=== PATIENT | female | born 1975 | race Caucasian/White ===

== ENCOUNTER → 2018-01-16 20:00 | Observation (INO) ==
--- NOTE | 2018-01-16 13:32 | Discharge Summary ---
Date of Encounter: 01/16/18 Time of Encounter: 20:11 - Discharge Diagnosis (1) 34 weeks gestation of Priority: Secondary Status: Acute (2) Gestational diabetes mellitus (GDM) affecting first Priority: Primary Status: Acute Comments: RNST (3) AMA (advanced maternal age) multigravida 35+ Priority: Secondary Status: Acute Qualifiers: Trimester: third trimester Qualified Code(s): O09.523 - Supervision of elderly multigravida, third trimester - Discharge Medications Home Medications: Vit/Iron Fumarate/FA [ Tablet] 1 tab PO DAILY 05/01/17 [History ] Aspirin 81 mg PO DAILY 01/16/18 [History] Omeprazole [PriLOSEC] 20 mg PO DAILY 01/16/18 [History] metFORMIN 1,000 mg PO BID 01/16/18 [History] Allergies/Adverse Reactions: 3 Allergy/AdvReac Type Severity Reaction Status Date / Time Erythromycin Base AdvReac Rash Verified 05/01/17 07:34 guaifenesin AdvReac Rash Verified 05/01/17 07:34 latex AdvReac See Verified 05/01/17 07:34 Comments moxifloxacin [From Avelox] AdvReac Rash Verified 05/01/17 07:34 Date of admission: 01/16/18 12:40 - Patient Status Disposition: Home, Self-Care Condition: Good Functional capacity at discharge: independent ambulation Overall status at discharge: patient is back to baseline - Discharge Instructions Additional Instructions: LABOR AND DELIVERY DISCHARGE INSTRUCTIONS Signs and Symptoms to be Reported to your Doctor Immediately: * Sudden gush, continuous or intermittent lead of fluid from vagina (note the time of gush and color of fluid) * Onset of bright red vaginal bleeding with or without pain (if you had a vaginal exam during this visit you may notice some dark red spotting. This is normal.) * Lower abdominal cramping or backache that is premenstrual-like feeling. * More than 6 contractions in one hour. * Burning during urination, having to urinate more frequently or pain in your mid-back. * A change in the baby's activity. This could be an increase or decrease in activity. * Severe headache which does not go away with tylenol. * Sudden swelling in the face, hands, arms and/or legs. * Upper abdominal pain - sometimes associated with heartburn or nausea and is not relieved by Maalox, Mylanta or Tums. * Dizziness or blurred vision or visual disturbances (seeing stars/lights). * Kick Counts One hour after a meal, lay down on one side in a quiet place. Count the number of spencer the baby moves during an hour. If less than 6 movements, notify your physician. Diet: *Force fluids - 8-10 tall glasses of fluid per day. May include popsicles and jello. *Limit caffeine - this includes chocolate, coffee, tea, any soft drink containing such as all karly, Zeke Yellow and Mountain Dew - Diet and Activity Activity: increase activity as tolerated Diet: advance to your usual diet Hospital Course [employer] Time Attestation: Total time spent providing and/or coordinating discharge services: Exam - Constitutional General appearance IM: A&O X 3 - Respiratory Respiratory exam: Present: CTAB - Cardiovascular Cardiovascular exam IM: Present: RRR - GI/Abdominal GI/Abdominal exam IM: soft - Extremities Exam Extremities exam IM: Present: full ROM - Neurological Exam Neurological exam: CN II-XII intact - Attending Attestation tiffany doarn md facog
[2018-01-16 16:05] LABS: Bilirubin,Urine Negative (Negative); Blood,Urine Negative (Negative); Clarity,Urine Clear (Clear); Color,Urine Yellow (Yellow); Glucose,Urine (UA) Normal (Normal); Ketones,Urine Negative (Negative); Leukocyte Esterase,Urine Negative (Negative); Nitrite,Urine Negative (Negative); PH,Urine 6.5 pH Units (5.0-8.0); Protein,Urine Negative (Neg-Trace); Specific Gravity,Urine < 1.005 (1.010-1.025); Urobilinogen,Urine Normal (Normal)
[2018-01-17 08:35] LABS: Amphetamine Screen,Urine Negative ng/mL (Cutoff=1000); Barbiturate Screen,Urine Negative ng/mL (Cutoff=200); Benzodiazepines Screen,Urine Negative ng/mL (Cutoff=200); Cannabinoid Screen,Urine Negative ng/mL (Cutoff = 50); Cocaine Screen,Urine Negative ng/mL (Cutoff= 300); Opiate Screen,Urine Negative ng/mL (Cutoff=300); Phencyclidine Screen,Urine Negative ng/mL (Cutoff=25)
== END | disposition home or self-care (01) ==
LOC: 1NENULAB
PROVIDERS: ADMIT Obstetrics & Gynecology; ATTEND Obstetrics & Gynecology

== ENCOUNTER → 2018-01-19 09:09 | Observation (INO) ==
[2018-01-18 00:29] LABS: Basophils % 0.5 %; Eosinophils # 0.1 K/mcL (0.0-0.6); Eosinophils % 1.6 %; Hematocrit 37.9 % (35.3-44.9); Hemoglobin 12.9 g/dL (11.5-15.4); Immature Granulocytes % 0.4 % (0-4); Lymphocytes # 1.9 K/mcL (0.6-4.6); Lymphocytes % 23.2 %; Mean Corpuscular Hemoglobin 28.4 pg (28.0-33.3); Mean Corpuscular Volume 83.3 fL (83.0-100.0); Mean Platelet Volume 10.1 fL (9.4-12.4); Monocytes # 0.9 K/mcL (0.0-1.3); Monocytes % 10.6 %; Neutrophils # 5.2 K/mcL (1.6-8.9); Platelet Count 253 K/mcL (140-400); Red Blood Count 4.55 M/mcL (3.82-4.97); Red Cell Distribution Width 13.1 % (11.5-14.5); Segmented Neutrophils % 63.7 %
--- NOTE | 2018-01-18 00:31 | OB/GYN Progress Note ---
Date of Encounter: 01/18/18 Time of Encounter: 00:29 - Assessment and Plan (1) High risk due to assisted reproductive technology Current Visit: Yes Status: Acute (2) Epigastric pain Current Visit: Yes Status: Acute We will order PIH labs, amylase lipase, bilirubin, we will give the patient a GI cocktail if no help we will give the patient some IV Demerol. We will give patient Zofran for her nausea vomiting and we will do IV bolus. (3) 34 weeks gestation of Current Visit: No Status: Acute (4) AMA (advanced maternal age) multigravida 35+ Current Visit: No Status: Acute Qualifiers: Trimester: third trimester Qualified Code(s): O09.523 - Supervision of elderly multigravida, third trimester (5) Gestational diabetes mellitus (GDM) affecting first Current Visit: No Status: Acute Subjective - Subjective Interval history: Patient is a 42-year-old 1 para 0 at 34-5/7 weeks who presents to labor and delivery complaining of sudden onset epigastric to right upper quadrant pain. Patient states approximately 2 hours ago still having pain progressively got worse. Started having nausea and vomiting came to labor and delivery for assessment. Patient still has her gallbladder has not had any issues in the . Patient does have a history of gestational diabetes on metformin. Because patient is with right upper quadrant pain she felt that the ER with not evaluate her until the ruled out preeclampsia. She states the baby is still moving is not complaining of any contractions. Describes the pain as shots stabbing pain and epigastric right upper quadrant pain. Antepartum ROS: other (Epigastric with right upper quadrant pain) Objective - Vital Signs Vital Signs: Intake and Output 01/17/18 01/17/18 01/18/18 15:59 23:59 07:59 Other: Weight 90.718 kg Patient Weight 01/18/18 23:59 Weight 90.718 kg - Exam FHR: category 1 FHR comments: heart tones 140s reactive no decelerations seen no contractions noted Abdomen: Present: tenderness (over epigastric region and into RUQ)
[2018-01-18] MEDS: GI Cocktail 40 ML EACH PO ONE ×2 (00:36→00:44)
[2018-01-18 00:45] LABS: Bilirubin,Direct 0.1 mg/dL (0.0-0.2); Bilirubin,Total 0.3 mg/dL (0.3-1.0)
[2018-01-18 00:46] LABS: Alanine Aminotransferase 14 Units/L (7-52); Amylase 37 Units/L (29-103); Aspartate Amino Transferase 19 Units/L (13-39); BUN/Creatinine Ratio 17 (6-26); Blood Urea Nitrogen 9 mg/dL (6-20); Lactate Dehydrogenase 185 Units/L (140-271); Lipase 19 Units/L (11-82); Uric Acid 4.3 mg/dL (2.3-7.6); eGFR For Non-African Americans > 60 (> 60)
[2018-01-18 02:21] LABS: Bilirubin,Urine Small (Negative); Blood,Urine Negative (Negative); Clarity,Urine Clear (Clear); Color,Urine Yellow (Yellow); Glucose,Urine (UA) Normal (Normal); Ketones,Urine 15 mg/dL (Negative); Leukocyte Esterase,Urine Negative (Negative); Nitrite,Urine Negative (Negative); PH,Urine 5.5 pH Units (5.0-8.0); Protein,Urine Negative (Neg-Trace); Specific Gravity,Urine 1.023 (1.010-1.025); Urobilinogen,Urine Normal (Normal)
--- NOTE | 2018-01-18 02:49 | Internal Medicine Consult Note ---
Date of Encounter: 01/18/18 Time of Encounter: 01:35 - Assessment and plan (1) RUQ abdominal pain Current Visit: Yes Status: Acute Assessment and plan: 1. Suspect Biliary colic. 2. Recommend STAT RUQ/GB ultrasound -- if there is evidence or suggestion of acute cholecystitis, recommend surgical consultation. 3. Pain and nausea control. 4. Continue Pepcid for possible GERD. 5. Obtain urinalysis and culture (if indicated) to rule out kidney stone, UTI, pyelonephritis (doubt all three). Discussed above with Dr. Jurado and patient. (2) 34 weeks gestation of Current Visit: Yes Status: Chronic Assessment and plan: 1. Per OB. 2. 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 Internal Medicine - CN: HPI - Data of Consult Consult date: 01/18/18 Requesting Physician: Raghu Jurado - Consult Narrative Reason for consult: abdominal pain History of present illness: Ms. Frias is a 42 year old female who was at work today when she developed sudden onset right upper quadrant abdominal pain, nausea, vomiting, and inability to get comfortable. I was asked by her open cut examiner to see her in consultation and to help provide further guidance. I talked with Dr. Jurado earlier and recommended some blood testing to rule out possible pancreatitis. I was then asked to see her formally in consultation. Upon my assessment of the patient, patient was in miserable pain and doubling over, unable to find a comfortable position. She is nauseated, vomiting at times, and very uncomfortable. Her pain is located mostly in the right upper quadrant and epigastrium. She has had no fevers, chills, or night sweats. She has had no dysuria, hematuria, or flank pain. She is 34 weeks . Symptoms started earlier this evening, shortly after she ate dinner. She had fried shrimp and north k[place] fries for dinner and then an hour or two later her symptoms started with abdominal pain, nausea, and vomiting. I reviewed her labs , and her CBC is unremarkable, LFTs are unremarkable, and pancreatic enzymes are normal as well. Upon further questioning, patient has had "irritable bowel syndrome type symptoms" with fatty, greasy foods, spicy foods, and some roughage type foods. I am highly suspicious this is biliary colic and I worry about acute cholecystitis. I discussed my concerns with patient and Dr. Jurado and recommended stat gallbladder ultrasound. If there is evidence of acute cholecystitis, she will need surgical consultation, most likely a [facility] given that she is 34 weeks and will likely need coordination with highway maintenance crew worker in the event she needs surgery. If the ultrasound is negative and her symptoms resolve, she can be monitored closely and pursue workup after delivery of the baby. However, biliary colic can flareup at any given time. Past Med Surg Social Fam HX - Past Medical History Attestation: Yes The following information was validated with the patient. Source: old records reviewed Medical history: asthma Additional medical history: gestational diabetes Psychiatric history: no psych history - Past Surgical History Additional surgical history: right knee sx x 3 , right wrist sx, tonsillectomy, hysteroscopy - Social History Smoking Status: Never smoker Smokeless Tobacco Status: No Alcohol use: none Drug use: none Current living situation: Home Activity Level: Independent ambulation Recent Out of Country Travel Within the Last 8 Weeks: No - Family History Mother Adopted: No Family Member Ethnicity: Non- Living Status: Hx Family Cardiac Disorders: No Hx Family Respiratory Disorders: No Hx Family Cancer: Yes Hx Family GI Disorders: No Hx Family Genitourinary Disorders: No Hx Family Endocrine Disorder: No Hx Family Musculoskeletal Disorders: No Hx Family Neuromuscular Disorders: No Hx Family Neurologic Disorders: No Hx Family HEENT Disorders: No Hx Family Autoimmune Disorders: No Hx Family Reproductive Disorders: No Hx Family Psychosocial Disorders: No Hx Family Medical Disorders: No - Constitutional Constitutional: no chills, no falls, no night sweats - EENT Nose, mouth and throat: no nasal congestion, no sore throat - Cardiovascular Cardiovascular ROS IM: no chest pain, no dyspnea - Respiratory Respiratory: no cough, no dyspnea, no chest congestion, no excessive phlegm production - Gastrointestinal Gastrointestinal: abdominal pain, belching, bloating, change in bowel habits, cramping, heartburn, nausea, vomiting, no hematemesis, no hematochezia, no melena - Genitourinary Genitourinary: no dysuria, no flank pain, no hematuria - Musculoskeletal Musculoskeletal ROS IM: no arthralgias, no back pain - Integumentary Integumentary IM: no rash, no jaundice - Neurological Neurological ROS: no dizziness, no focal weakness - Endocrine Endocrine IM: no polydipsia, no polyphagia, no polyuria - Allergic/Immunologic Allergic/Immunologic: wheezing, GI upset with certain foods Internal Medicine - CN: Meds Vit/Iron Fumarate/FA [ Tablet] 1 tab PO DAILY 05/01/17 [History ] Aspirin 81 mg PO DAILY 01/16/18 [History] Omeprazole [PriLOSEC] 20 mg PO DAILY 01/16/18 [History] metFORMIN 1,000 mg PO BID 01/16/18 [History] 3 Allergy/AdvReac Type Severity Reaction Status Date / Time Erythromycin Base AdvReac Rash Verified 05/01/17 07:34 guaifenesin AdvReac Rash Verified 05/01/17 07:34 latex AdvReac See Verified 05/01/17 07:34 Comments moxifloxacin [From Avelox] AdvReac Rash Verified 05/01/17 07:34 Hospitalist - CN: Exam - Constitutional General appearance IM: Present: cooperative, A&O X 3, severe distress, answers questions appropriately Exam: clenching her RUQ, doubling over in pain, unable to get comfortable - Head Head exam: Present: normal inspection - Eye Eye exam: Present: PERRL. Absent: scleral icterus - ENT ENT exam: Present: mucous membranes dry, normal oropharynx - Neck Neck exam general surgery: Present: full ROM, supple. Absent: tenderness, nuchal rigidity, thyromegaly - Respiratory Respiratory exam: Present: CTAB. Absent: chest wall tenderness, rales, rhonchi , wheezes - Cardiovascular Cardiovascular exam IM: Present: RRR, +S1, +S2. Absent: diastolic murmur, systolic murmur - GI/Abdominal GI/Abdominal exam IM: Present: guarding, hypoactive bowel sounds, soft, tenderness (RUQ), no peritoneal signs. Absent: hepatomegaly, mass, rebound, splenomegaly - Expanded GI/Abdominal Exam GI/Abdominal exam: Present: Correia's sign - Extremities Exam Extremities exam IM: Present: warm, radial pulses palpable and symmetrical - Back Exam Back exam: Present: normal inspection. Absent: CVA tenderness (L), CVA tenderness (R) - Neurological Exam Neurological exam: Present: alert, CN II-XII intact, oriented X3, no focal deficits - Skin Skin exam IM: Present: dry, intact, warm Internal Medicine - CN: Reslt - Labs CBC & Chem 7: 01/17/18 23:59 01/17/18 23:59 Labs: Short CBC 01/17/18 Range/Units 23:59 WBC 8.1 (4.3-11.1) K/mcL Hgb 12.9 (11.5-15.4) g/dL Hct 37.9 (35.3-44.9) % Plt Count 253 (140-400) K/mcL Neutrophils # 5.2 (1.6-8.9) K/mcL BMP 01/17/18 23:59 BUN 9 Creatinine 0.53 L Liver Function 01/17/18 01/18/18 Range/Units 23:59 00:00 Total Bilirubin 0.3 (0.3-1.0) mg/dL Direct Bilirubin 0.1 (0.0-0.2) mg/dL AST 19 (13-39) Units/L ALT 14 (7-52) Units/L Urine 01/18/18 Range/Units 02:10 Urine Color Yellow (Yellow) Urine Clarity Clear (Clear) Urine pH 5.5 (5.0-8.0) pH Units Ur Specific [place] 1.023 (1.010-1.025) Urine Protein Negative (Neg-Trace) mg/dL Urine Glucose (UA) Normal (Normal) mg/dL
--- NOTE | 2018-01-18 08:11 | OB/GYN History & Physical ---
Date of Encounter: 01/18/18 Time of Encounter: 08:08 Assessment and Plan (1) High risk due to assisted reproductive technology Current visit: Yes Status: Acute (2) Epigastric pain Current visit: Yes Status: Acute (3) 34 weeks gestation of Current visit: Yes Status: Chronic (4) AMA (advanced maternal age) multigravida 35+ Current visit: No Status: Acute Qualifiers: Trimester: third trimester Qualified Code(s): O09.523 - Supervision of elderly multigravida, third trimester (5) Gestational diabetes mellitus (GDM) affecting first Current visit: No Status: Acute (6) Acute cholecystitis due to biliary calculus Current visit: Yes Status: Acute We will advance patient's diet slowly is tolerating liquids will advance to a fat free diabetic diet we will transfer to the medical floor for observation and discharge if stable History of Present Illness HPI: Ms. Frias is a 42 year old female 1 para 0 34-5/7 weeks who was admitted to labor and delivery with complaint of severe sudden onset epigastric to right upper quadrant pain. Patient states at approximately 2100 started having some discomfort by 2300 patient is in severe pain could not sit still. On admission patient was writhing in pain with associated nausea vomiting we did do lab work on her for preeclampsia gallbladder and pancreatitis all came back normal. Patient received a GI cocktail with no relief we then gave the patient 50 mg of Demerol, 4 mg of Zofran followed by 12.5 mg of Phenergan. None of this touched her pain or nausea vomiting. She subsequently got 4 mg of morphine also with no relief. Cord blood ultrasound performed on the patient did reveal sludge with stones but no thickening of the wall and no duct dilatation. Patient received 50 mg of fentanyl and this did significantly help her pain she did require one more dose 2 hours later and pain went from a 10 out of 10-1 out of 10. Because of patient's history did discuss keeping her for another 24 hours watching her closely to make sure there is no reflux. Patient is a A2 gestational diabetic on metformin. Patient has also been getting 3 times a week NSTs due to some variable decelerations noted on her strips. Patient is significantly better than on admission. Case was discussed with general surgery at this point they just recommended fat-free diet no antibiotics and less she has noted a white count or GB wall thickening thickening. Past Med Surg Social Fam HX - Past Medical History Source: patient, old records reviewed Medical history: asthma, diabetes (A2GDM) Additional medical history: gestational diabetes Psychiatric history: no psych history - Past Surgical History Additional surgical history: right knee sx x 3 , right wrist sx, tonsillectomy, hysteroscopy - Social History Smoking Status: Never smoker Smokeless Tobacco Status: No Alcohol use: none Drug use: none Occupational status: employed Current living situation: Home - Independent Activity Level: Independent ambulation Recent Out of Country Travel Within the Last 8 Weeks: No Exposure or Possible Exposure to Illness During Travel: No - Family History Mother Adopted: No Family Member Ethnicity: Non- Living Status: Hx Family Cardiac Disorders: No Hx Family Respiratory Disorders: No Hx Family Cancer: Yes Hx Family GI Disorders: No Hx Family Genitourinary Disorders: No Hx Family Endocrine Disorder: No Hx Family Musculoskeletal Disorders: No Hx Family Neuromuscular Disorders: No Hx Family Neurologic Disorders: No Hx Family HEENT Disorders: No Hx Family Autoimmune Disorders: No Hx Family Reproductive Disorders: No Hx Family Psychosocial Disorders: No Hx Family Medical Disorders: No - Additional Family History Additional family history: Family history noncontributory Obstetrical History - Pregnancies : 1 Para: 0 Medications and Allergies Vit/Iron Fumarate/FA [ Tablet] 1 tab PO DAILY 05/01/17 [History ] Aspirin 81 mg PO DAILY 01/16/18 [History] Omeprazole [PriLOSEC] 20 mg PO DAILY 01/16/18 [History] metFORMIN 1,000 mg PO BID 01/16/18 [History] 3 Allergy/AdvReac Type Severity Reaction Status Date / Time Erythromycin Base AdvReac Rash Verified 05/01/17 07:34 guaifenesin AdvReac Rash Verified 05/01/17 07:34 latex AdvReac See Verified 05/01/17 07:34 Comments moxifloxacin [From Avelox] AdvReac Rash Verified 05/01/17 07:34 Review of System OB All systems PM: reviewed and no additional remarkable complaints except as stated - Gastrointestinal Gastrointestinal: abdominal pain (severe epigastric and RUQ), nausea, vomiting Exam - Constitutional Constitutional: average body habitus, moderate distress - HEENT HEENT: EOMI, PERRL, Mucus Membranes Moist - Neck Neck exam: full ROM - Lungs Respiratory exam: CTAB - Cardiovascular Cardiovascular exam: RRR - Abdomen Abdomen: Present: bowel sounds normal, gravid ( heart tones 140s reactive no contraction seen) - Vagina Vagina: Present: normal moisture Results Result Diagrams: 01/17/18 23:59 01/17/18 23:59 Abnormal lab results Creatinine 0.53 mg/dL (0.60-1.20) L 01/17/18 23:59 Urine Ketones 15 mg/dL (Negative) H 01/18/18 02:10 Urine Bilirubin Small (Negative) H 01/18/18 02:10 All other labs normal. - VTE Reasons for not Prescribing Prophylaxis: Treatment not Indicated - Low risk for VTE
[2018-01-18 09:21] LABS: Basophils % 0.2 %; Eosinophils % 0.1 %; Hematocrit 35.2 % (35.3-44.9); Hemoglobin 11.7 g/dL (11.5-15.4); Immature Granulocytes % 0.2 % (0-4); Lymphocytes # 1.1 K/mcL (0.6-4.6); Lymphocytes % 11.1 %; Mean Corpuscular HGB Conc 33.2 g/dL (31.6-35.5); Mean Corpuscular Hemoglobin 27.9 pg (28.0-33.3); Mean Corpuscular Volume 83.8 fL (83.0-100.0); Mean Platelet Volume 9.6 fL (9.4-12.4); Monocytes # 0.7 K/mcL (0.0-1.3); Monocytes % 6.9 %; Neutrophils # 8.3 K/mcL (1.6-8.9); Platelet Count 224 K/mcL (140-400); Red Cell Distribution Width 13.2 % (11.5-14.5); Segmented Neutrophils % 81.5 %
[2018-01-18 09:42] LABS: Alanine Aminotransferase 11 Units/L (7-52); Albumin 3.4 g/dL (3.5-5.7); Albumin/Globulin Ratio 1.2 (1.1-2.2); Alkaline Phosphatase 96 Units/L (34-104); Aspartate Amino Transferase 15 Units/L (13-39); BUN/Creatinine Ratio 18 (6-26); Bilirubin,Total 0.4 mg/dL (0.3-1.0); Blood Urea Nitrogen 8 mg/dL (6-20); Calcium 9.1 mg/dL (8.6-10.3); Carbon Dioxide 21 mEq/L (23-29); Chloride 106 mEq/L (98-107); Globulin 2.8 g/dL (2.4-3.5); Glucose 110 mg/dL (70-105); Osmolality,Calculated 281 (280-300); Potassium 3.9 mEq/L (3.5-5.1); Sodium 136 mEq/L (136-145); Total Protein 6.2 g/dL (6.4-8.9); eGFR For Non-African Americans > 60 (> 60)
[2018-01-18 10:37] LABS: Amylase 28 Units/L (29-103); Lipase 6 Units/L (11-82)
--- NOTE | 2018-01-18 10:42 | OB Labor Progress Note ---
Date of Encounter: 01/18/18 Time of Encounter: 10:40 Labor Progress Note - Subjective Subjective: Patient is resting comfortably in bed with a 2-3 out of 10 pain range. She denies nausea and vomiting. - Vital Signs Vital Signs: Stable - Cervix Cervix: Not examined - Heart Tones Heart Tones: Category 1 - Oriska Oriska: No contractions - Interventions Interventions: Discussed plan of care with Dr. Rodriguez, general surgeon. He does not feel that she has a surgical abdomen. Also discussed care with Dr. Mando Erwin who is maternal medicine specialist. He does not believe that Aliyah needs to be transferred at this time. Will continue expectant management. - Plan Plan: See orders
--- NOTE | 2018-01-18 13:27 | General Surgery Consult Note ---
Date of Encounter: 01/18/18 Time of Encounter: 09:00 Assessment and Plan (1) RUQ abdominal pain Current Visit: Yes Status: Acute 42F 34 weeks with biliary colic; pain significantly improved; US demonstrates cholelithiasis but no other signs to suggest acute inflammation; diet as tolerated strongly advised patient to begin a bland diet free of fatty, fried, sugary, sweetened foods for the rest of her recommend delivery per OB recs (ideally around 36-37 weeks) will plan to see in my clinic ~ 3-6 weeks after delivery and can schedule for surgery at that time no acute surgery at present History of Present Illness Consult date: 01/18/18 Reason for consult: gallstones Requesting physician: Kam Costa History of present illness: 42F who is 34 weeks via IVF with gestational diabetes who presents with RUQ abdominal pain. She states that her usual diet has consisted of fairly fatty foods, such as barbecue chicken, maori fries, fried shrimp, chocolate chip cookies and the like. She states that she originally began experiencing upper abdominal pain across both her upper quadrants and epigastric region, but attributed it to her being in her third trimester of . However, last night she states that the pain was sharp and localized to the RUQ, different than any other pain she has had before. No reports of fevers, chills, jaundice, but it did take several hours and multiple pain medications before her symptoms would mitigate. She was admitted for pain control and I was consulted to evaluate whether or not she would need surgery for her gallbladder while in her third trimester. oF not she did have an US, which was reviewed by me, which demonstrated sludge and stones, but no evidence of pericholecystic fluid, , ductal dilatation, nor gallbladder wall thickening. Her WBC is wnl and she is hemodynamically stable. Past Med Surg Social Fam HX - Past Medical History Medical history: asthma, diabetes (A2GDM) Additional medical history: gestational diabetes Psychiatric history: no psych history - Past Surgical History Additional surgical history: right knee sx x 3 , right wrist sx, tonsillectomy, hysteroscopy - Social History Smoking Status: Never smoker Smokeless Tobacco Status: No Alcohol use: none Drug use: none - Family History Mother Adopted: No Family Member Ethnicity: Non- Living Status: Hx Family Cardiac Disorders: No Hx Family Respiratory Disorders: No Hx Family Cancer: Yes Hx Family GI Disorders: No Hx Family Genitourinary Disorders: No Hx Family Endocrine Disorder: No Hx Family Musculoskeletal Disorders: No Hx Family Neuromuscular Disorders: No Hx Family Neurologic Disorders: No Hx Family HEENT Disorders: No Hx Family Autoimmune Disorders: No Hx Family Reproductive Disorders: No Hx Family Psychosocial Disorders: No Hx Family Medical Disorders: No Medications and Allergies Vit/Iron Fumarate/FA [ Tablet] 1 tab PO DAILY 05/01/17 [History ] Aspirin 81 mg PO DAILY 01/16/18 [History] Omeprazole [PriLOSEC] 20 mg PO DAILY 01/16/18 [History] metFORMIN 1,000 mg PO BID 01/16/18 [History] 3 Allergy/AdvReac Type Severity Reaction Status Date / Time Erythromycin Base AdvReac Rash Verified 05/01/17 07:34 guaifenesin AdvReac Rash Verified 05/01/17 07:34 latex AdvReac See Verified 05/01/17 07:34 Comments moxifloxacin [From Avelox] AdvReac Rash Verified 05/01/17 07:34 Review of Systems All systems PM: 12 point ROS negative besides HPI findings General Surgery Exam - General physical appearance no distress (mild pain) - Eyes other (no scleral icterus), normal ocular movement - ENT normocephalic - Neck no lymphadectomy - Respiratory normal expansion, normal respiratory effort - Cardiovascular Cardiovascular exam: Present: RRR - Abdomen Abdomen general surgery: Present: soft, tender Abdominal Tenderness: Present: RUQ ((-)maxwell's sign) - Integumentary Integumentary general surgery: Present: warm and dry, no abnormal pigmentation - Neurologic Present: CN 2-12 grossly intact - Musculoskeletal Present: normal posture - Psychiatric Psychiatric general surgery: Present: A&Ox3 Results - Labs 01/18/18 08:50 01/18/18 08:50 Abnormal lab results Hct 35.2 % (35.3-44.9) L 01/18/18 08:50 MCH 27.9 pg (28.0-33.3) L 01/18/18 08:50 Carbon Dioxide 21 mEq/L (23-29) L 01/18/18 08:50 Creatinine 0.45 mg/dL (0.60-1.20) L 01/18/18 08:50 Glucose 110 mg/dL (70-105) H 01/18/18 08:50 POC Glucose 109 mg/dL (70-99) H 01/18/18 08:21 Serum Total Protein 6.2 g/dL (6.4-8.9) L 01/18/18 08:50 Albumin 3.4 g/dL (3.5-5.7) L 01/18/18 08:50 Amylase 28 Units/L (29-103) L 01/18/18 08:50 Lipase 6 Units/L (11-82) L 01/18/18 08:50 Urine Ketones 15 mg/dL (Negative) H 01/18/18 02:10 Urine Bilirubin Small (Negative) H 01/18/18 02:10 Diabetes panel 01/17/18 01/18/18 Range/Units 23:59 08:50 Sodium 136 (136-145) mEq/L Potassium 3.9 (3.5-5.1) mEq/L Chloride 106 (98-107) mEq/L Carbon Dioxide 21 L (23-29) mEq/L BUN 9 8 (6-20) mg/dL Creatinine 0.53 L 0.45 L (0.60-1.20) mg/dL Glucose 110 H (70-105) mg/dL Calcium 9.1 (8.6-10.3) mg/dL AST 19 15 (13-39) Units/L ALT 14 11 (7-52) Units/L Alkaline Phosphatase 96 (34-104) Units/L Albumin 3.4 L (3.5-5.7) g/dL Calcium panel 01/18/18 Range/Units 08:50 Calcium 9.1 (8.6-10.3) mg/dL Albumin 3.4 L (3.5-5.7) g/dL Pituitary panel 01/17/18 01/18/18 Range/Units 23:59 08:50 Sodium 136 (136-145) mEq/L Potassium 3.9 (3.5-5.1) mEq/L Chloride 106 (98-107) mEq/L Carbon Dioxide 21 L (23-29) mEq/L BUN 9 8 (6-20) mg/dL Creatinine 0.53 L 0.45 L (0.60-1.20) mg/dL Glucose 110 H (70-105) mg/dL Calcium 9.1 (8.6-10.3) mg/dL Adrenal panel 01/17/18 01/18/18 01/18/18 Range/Units 23:59 00:00 08:50 Sodium 136 (136-145) mEq/L Potassium 3.9 (3.5-5.1) mEq/L Chloride 106 (98-107) mEq/L Carbon Dioxide 21 L (23-29) mEq/L BUN 9 8 (6-20) mg/dL Creatinine 0.53 L 0.45 L (0.60-1.20) mg/dL Glucose 110 H (70-105) mg/dL Calcium 9.1 (8.6-10.3) mg/dL Total Bilirubin 0.3 0.4 (0.3-1.0) mg/dL AST 19 15 (13-39) Units/L ALT 14 11 (7-52) Units/L Alkaline Phosphatase 96 (34-104) Units/L Albumin 3.4 L (3.5-5.7) g/dL All other labs normal. - Imaging US - abdomen: report reviewed, image reviewed Consult Discharge Plan - Plan Referrals: NONE,PCP [Primary Care Provider] -
--- NOTE | 2018-01-18 15:15 | Event Note ---
Date of Encounter: 01/18/18 Time of Encounter: 15:14 Patient being followed by surgery for RUQ pain, there is no management going on per hospital medicine, follow recommendations as per Dr. Dasilva's documentation We will sign off at this time, thank you for your consult
--- NOTE | 2018-01-19 08:34 | Discharge Summary ---
Date of Encounter: 01/19/18 Time of Encounter: 08:33 - Discharge Diagnosis (1) Cholelithiasis affecting in third trimester, antepartum Priority: Primary Status: Acute (2) Epigastric pain Priority: Secondary Status: Acute (3) RUQ abdominal pain Priority: Secondary Status: Acute (4) 34 weeks gestation of Priority: Primary Status: Chronic (5) AMA (advanced maternal age) multigravida 35+ Priority: Secondary Status: Chronic Comments: RNST Qualifiers: Trimester: third trimester Qualified Code(s): O09.523 - Supervision of elderly multigravida, third trimester (6) Gestational diabetes mellitus (GDM) affecting first Priority: Secondary Status: Chronic - Discharge Medications Home Medications: Vit/Iron Fumarate/FA [ Tablet] 1 tab PO DAILY 05/01/17 [History ] Aspirin 81 mg PO DAILY 01/16/18 [History] Omeprazole [PriLOSEC] 20 mg PO DAILY 01/16/18 [History] metFORMIN 1,000 mg PO BID 01/16/18 [History] Allergies/Adverse Reactions: 3 Allergy/AdvReac Type Severity Reaction Status Date / Time Erythromycin Base AdvReac Rash Verified 05/01/17 07:34 guaifenesin AdvReac Rash Verified 05/01/17 07:34 latex AdvReac See Verified 05/01/17 07:34 Comments moxifloxacin [From Avelox] AdvReac Rash Verified 05/01/17 07:34 Data Procedures and tests throughout hospitalization: Laboratory Tests 01/17/18 01/17/18 01/18/18 23:59 23:59 00:00 WBC 8.1 RBC 4.55 Hgb 12.9 Hct 37.9 MCV 83.3 MCH 28.4 MCHC 34.0 RDW 13.1 Plt Count 253 MPV 10.1 Immature Gran % 0.4 Seg Neutrophils % 63.7 Lymphocytes % 23.2 Monocytes % 10.6 Eosinophils % 1.6 Basophils % 0.5 Neutrophils # 5.2 Lymphocytes # 1.9 Monocytes # 0.9 Eosinophils # 0.1 Basophils # 0.0 Sodium Potassium Chloride Carbon Dioxide BUN 9 Creatinine 0.53 L Est GFR ( Amer) > 60 Est GFR (Non-Af Amer) > 60 BUN/Creatinine Ratio 17 Glucose POC Glucose Calculated Osmolality Uric Acid 4.3 Calcium Total Bilirubin 0.3 Direct Bilirubin 0.1 AST 19 ALT 14 Alkaline Phosphatase Lactate Dehydrogenase 185 Serum Total Protein Albumin Globulin Albumin/Globulin Ratio Amylase 37 Lipase 19 Urine Color Urine Clarity Urine pH Ur Specific [place] Urine Protein Urine Glucose (UA) Urine Ketones Urine Blood Urine Nitrite Urine Bilirubin Urine Urobilinogen Ur Leukocyte Esterase Ur Culture Indicated? 01/18/18 01/18/18 01/18/18 02:10 08:21 08:50 WBC 10.2 RBC 4.20 Hgb 11.7 Hct 35.2 L MCV 83.8 MCH 27.9 L MCHC 33.2 RDW 13.2 Plt Count 224 MPV 9.6 Immature Gran % 0.2 Seg Neutrophils % 81.5 Lymphocytes % 11.1 Monocytes % 6.9 Eosinophils % 0.1 Basophils % 0.2 Neutrophils # 8.3 Lymphocytes # 1.1 Monocytes # 0.7 Eosinophils # 0.0 Basophils # 0.0 Sodium Potassium Chloride Carbon Dioxide BUN Creatinine Est GFR ( Amer) Est GFR (Non-Af Amer) BUN/Creatinine Ratio Glucose POC Glucose 109 H Calculated Osmolality Uric Acid Calcium Total Bilirubin Direct Bilirubin AST ALT Alkaline Phosphatase Lactate Dehydrogenase Serum Total Protein Albumin Globulin Albumin/Globulin Ratio Amylase Lipase Urine Color Yellow Urine Clarity Clear Urine pH 5.5 Ur Specific [place] 1.023 Urine Protein Negative Urine Glucose (UA) Normal Urine Ketones 15 H Urine Blood Negative Urine Nitrite Negative Urine Bilirubin Small H Urine Urobilinogen Normal Ur Leukocyte Esterase Negative Ur Culture Indicated? NO 01/18/18 01/18/18 01/18/18 08:50 15:08 20:07 WBC RBC Hgb Hct MCV MCH MCHC RDW Plt Count MPV Immature Gran % Seg Neutrophils % Lymphocytes % Monocytes % Eosinophils % Basophils % Neutrophils # Lymphocytes # Monocytes # Eosinophils # Basophils # Sodium 136 Potassium 3.9 Chloride 106 Carbon Dioxide 21 L BUN 8 Creatinine 0.45 L Est GFR ( Amer) > 60 Est GFR (Non-Af Amer) > 60 BUN/Creatinine Ratio 18 Glucose 110 H POC Glucose 122 H 118 H Calculated Osmolality 281 Uric Acid Calcium 9.1 Total Bilirubin 0.4 Direct Bilirubin AST 15 ALT 11 Alkaline Phosphatase 96 Lactate Dehydrogenase Serum Total Protein 6.2 L Albumin 3.4 L Globulin 2.8 Albumin/Globulin Ratio 1.2 Amylase 28 L Lipase 6 L Urine Color Urine Clarity Urine pH Ur Specific [place] Urine Protein Urine Glucose (UA) Urine Ketones Urine Blood Urine Nitrite Urine Bilirubin Urine Urobilinogen Ur Leukocyte Esterase Ur Culture Indicated? Labs on day of discharge: Labs from last 24 hours 01/18/18 01/18/18 01/18/18 20:07 15:08 08:50 WBC RBC Hgb Hct MCV MCH MCHC RDW Plt Count MPV Immature Gran % Seg Neutrophils % Lymphocytes % Monocytes % Eosinophils % Basophils % Neutrophils # Lymphocytes # Monocytes # Eosinophils # Basophils # Sodium 136 Potassium 3.9 Chloride 106 Carbon Dioxide 21 L BUN 8 Creatinine 0.45 L Est GFR ( Amer) > 60 Est GFR (Non-Af Amer) > 60 BUN/Creatinine Ratio 18 Glucose 110 H POC Glucose 118 H 122 H Calculated Osmolality 281 Calcium 9.1 Total Bilirubin 0.4 AST 15 ALT 11 Alkaline Phosphatase 96 Serum Total Protein 6.2 L Albumin 3.4 L Globulin 2.8 Albumin/Globulin Ratio 1.2 Amylase 28 L Lipase 6 L 01/18/18 01/18/18 08:50 08:21 WBC 10.2 RBC 4.20 Hgb 11.7 Hct 35.2 L MCV 83.8 MCH 27.9 L MCHC 33.2 RDW 13.2 Plt Count 224 MPV 9.6 Immature Gran % 0.2 Seg Neutrophils % 81.5 Lymphocytes % 11.1 Monocytes % 6.9 Eosinophils % 0.1 Basophils % 0.2 Neutrophils # 8.3 Lymphocytes # 1.1 Monocytes # 0.7 Eosinophils # 0.0 Basophils # 0.0 Sodium Potassium Chloride Carbon Dioxide BUN Creatinine Est GFR ( Amer) Est GFR (Non-Af Amer) BUN/Creatinine Ratio Glucose POC Glucose 109 H Calculated Osmolality Calcium Total Bilirubin AST ALT Alkaline Phosphatase Serum Total Protein Albumin Globulin Albumin/Globulin Ratio Amylase Lipase - Impressions ITS Impressions Gallbladder Ultrasound 01/18/18 02:50 IMPRESSION: Cholelithiasis without evidence of cholecystitis or bile duct dilatation. D/ / Raghu Almazan / Raghu Almazan Interpreting Provider: Raghu Almazan Date of admission: 01/17/18 23:42 Primary care physician: PCP NONE Consults: 01/18/18 01:44 Consult to Hospitalist [CONS] Stat Consulting Provider: Hospitalist [place] Reason for Consult: right upper quardrant pain not related Time Notified: 01:44 Call Completed: Yes 01/18/18 09:06 Consult to Surgery [CONS] Stat Consulting Provider: Tiffany Doran Reason for Consult: cholelithiasis Time Notified: 09:06 Call Completed: Yes - Patient Status Disposition: Home, Self-Care Condition: Good Functional capacity at discharge: independent ambulation Overall status at discharge: patient is progressing back to baseline - Discharge Instructions Follow Up With: NONE,PCP [Primary Care Provider] - - Diet and Activity Activity: increase activity as tolerated Diet: diabetic diet 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
[~2018-01-19 09:09] MED LIST: *HR* FentaNYL (PF) 100 MCG/2 ML VIAL IVP ONE; *HR* Meperidine 50 MG/ML SYRINGE IVP ONE; *HR* Morphine 2 MG/ML SYRINGE IVP ONE; *HR* OxyCODONE/APAP 5/325 TABLET PO PRN; *HR* Promethazine 25 MG/ML VIAL IVP ONE; Acetaminophen 325 MG TABLET PO PRN; Acetaminophen IV 1,000 MG/100 ML INFUS..BTL IVPB PRN; Famotidine 20 MG/2 ML VIAL IVP ONE; Lidocaine -MPF 1% 2 ML VIAL ONE; Ondansetron 4 MG/2 ML VIAL IM ONE; Ondansetron 4 MG/2 ML VIAL IVP ONE; Ondansetron 4 MG/2 ML VIAL IVP PRN; Ondansetron 4 MG/2 ML VIAL ONE; Ringers Solution, Lactated 1,000 ML ONE; Ringers Solution, Lactated 500 ML IVC ONE; Ringers Solution, Lactated 500 ML IVC SCH
== END | disposition home or self-care (01) ==
LOC: 1NENULAB
PROVIDERS: ADMIT Obstetrics & Gynecology; ATTEND Obstetrics & Gynecology

== ENCOUNTER → 2018-01-22 15:40 | Observation (INO) ==
--- NOTE | 2018-01-22 15:38 | Discharge Summary ---
Date of Encounter: 01/22/18 Time of Encounter: 15:50 - Discharge Diagnosis (1) 35 weeks gestation of Priority: Primary Status: Acute Comments: Follow-up with Dr. Costa as scheduled Patient aware of labor precautions Extended monitoring 4 hours revealed a category 1 tracing Discharge home - Discharge Medications Home Medications: Vit/Iron Fumarate/FA [ Tablet] 1 tab PO DAILY 05/01/17 [History ] Aspirin 81 mg PO DAILY 01/16/18 [History] Omeprazole [PriLOSEC] 20 mg PO DAILY 01/16/18 [History] metFORMIN 1,000 mg PO BID 01/16/18 [History] Allergies/Adverse Reactions: 3 Allergy/AdvReac Type Severity Reaction Status Date / Time Erythromycin Base AdvReac Rash Verified 05/01/17 07:34 guaifenesin AdvReac Rash Verified 05/01/17 07:34 latex AdvReac See Verified 05/01/17 07:34 Comments moxifloxacin [From Avelox] AdvReac Rash Verified 05/01/17 07:34 Date of admission: 01/22/18 11:12 Primary care physician: PCP NONE Discharging clinician: Rosangela Velez Anticipated date of discharge: 01/22/18 - Patient Status Disposition: Home, Self-Care Condition: Good Functional capacity at discharge: independent ambulation Overall status at discharge: patient is progressing back to baseline - Discharge Instructions Follow Up With: NONE,PCP [Primary Care Provider] - Kam Costa MD [Partnered Physician] - - Diet and Activity Activity: increase activity as tolerated Diet: regular diet 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 Pt monitored for 4 hours and continues to have variables but they are very mild. Patient aware and agreeable to be discharged home. Will follow up as scheduled. Time Attestation: Total time spent providing and/or coordinating discharge services: Time Spent: Less than 30 minutes Exam - Constitutional General appearance IM: A&O X 3 - Respiratory Respiratory exam: Present: CTAB - Cardiovascular Cardiovascular exam IM: Present: RRR, +S1, +S2 - GI/Abdominal GI/Abdominal exam IM: normal bowel sounds, no peritoneal signs - Rectal Rectal exam: deferred - Uterine Tone: Firm - Extremities Exam Extremities exam IM: Present: normal capillary refill, normal inspection, radial pulses palpable and symmetrical - Neurological Exam Neurological exam: alert, CN II-XII intact, normal gait, oriented X3, reflexes normal, no focal deficits, strengths equal and symetr throughout - VTE Reasons for not Prescribing Prophylaxis: Treatment not Indicated - Low risk for VTE
[~2018-01-22 15:40] MED LIST changes: -*HR* FentaNYL (PF) 100 MCG/2 ML VIAL IVP ONE; -*HR* Meperidine 50 MG/ML SYRINGE IVP ONE; +*HR* Metformin 500 MG TABLET PO ONE; -*HR* Morphine 2 MG/ML SYRINGE IVP ONE; -*HR* OxyCODONE/APAP 5/325 TABLET PO PRN; -*HR* Promethazine 25 MG/ML VIAL IVP ONE; -Acetaminophen 325 MG TABLET PO PRN; -Acetaminophen IV 1,000 MG/100 ML INFUS..BTL IVPB PRN; -Famotidine 20 MG/2 ML VIAL IVP ONE; -Lidocaine -MPF 1% 2 ML VIAL ONE; -Ondansetron 4 MG/2 ML VIAL IM ONE; -Ondansetron 4 MG/2 ML VIAL IVP ONE; -Ondansetron 4 MG/2 ML VIAL IVP PRN; -Ondansetron 4 MG/2 ML VIAL ONE; -Ringers Solution, Lactated 1,000 ML ONE; -Ringers Solution, Lactated 500 ML IVC ONE; -Ringers Solution, Lactated 500 ML IVC SCH
== END | disposition home or self-care (01) ==
LOC: 1NENULAB
PROVIDERS: ADMIT Advanced Practice Midwife; ATTEND Advanced Practice Midwife

== ENCOUNTER 2018-02-03 20:00 | Inpatient (IN) ==
[2018-02-03] MEDS ORDERED: Ondansetron 4 MG/2 ML VIAL IVP PRN (20:43)
[2018-02-03] MEDS ORDERED: Metoclopramide 10 MG/2 ML VIAL IVP PRN (20:43)
[2018-02-03] MEDS ORDERED: Naloxone 0.4 MG/ML INJ IVP PRN (20:43)
[2018-02-03] MEDS ORDERED: *HR* Nalbuphine 10 MG/ML AMPUL IVP PRN (20:43)
[2018-02-03] MEDS ORDERED: Famotidine 20 MG/2 ML VIAL IVP PRN (20:43)
[2018-02-03] MEDS ORDERED: Ringers Solution, Lactated 1,000 ML IVC SCH (20:45)
--- NOTE | 2018-02-03 21:00 | OB/GYN History & Physical ---
Date of Encounter: 02/03/18 Time of Encounter: 20:50 Assessment and Plan (1) 37 weeks gestation of Current visit: Yes Status: Acute Admit for IOL per MFM recommendation. Plan for cytotec and villatoro induction. GBS negative. Anticipate . POC discussed with Dr. Costa (2) Variable heart rate decelerations, antepartum Current visit: Yes Status: Acute (3) Cholelithiasis affecting in third trimester, antepartum Current visit: No Status: Acute (4) High risk due to assisted reproductive technology Current visit: No Status: Acute (5) AMA (advanced maternal age) multigravida 35+ Current visit: No Status: Chronic Qualifiers: Trimester: third trimester Qualified Code(s): O09.523 - Supervision of elderly multigravida, third trimester (6) Gestational diabetes mellitus (GDM) affecting first Current visit: No Status: Chronic History of Present Illness Chief complaint: IOL, AMA, GDMA2 HPI: Ms. Frias is a 42 year old female presenting at 37w0d for scheduled IOL as recommended by MFM. This is complicated by IVF, AMA, GDMA2 well controlled on Metformin, history of LEEP, cholelithiasis, and recurrent variable decelerations on NST. A positive Rubella immune Varicella immune HIV, Hep B, Hep C, RPR negative GC/Cl negative Glucola 145 GBS negative Normal anatomy Normal embryonic genetic testing Past Med Surg Social Fam HX - Past Medical History Medical history: asthma, diabetes Additional medical history: gestational diabetes, cholelithiasis Psychiatric history: no psych history - Past Surgical History Additional surgical history: right knee sx x 3 , right wrist sx, tonsillectomy, hysteroscopy - Social History Smoking Status: Never smoker Smokeless Tobacco Status: No Alcohol use: none Drug use: none - Family History Mother Adopted: No Family Member Ethnicity: Non- Living Status: Still Living Hx Family Cardiac Disorders: No Hx Family Respiratory Disorders: No Hx Family Cancer: Yes (ovarian cancer) Hx Family GI Disorders: No Hx Family Endocrine Disorder: No Hx Family Neuromuscular Disorders: No Hx Family Neurologic Disorders: No Hx Family HEENT Disorders: No Hx Family Autoimmune Disorders: No Obstetrical History - Pregnancies : 1 Medications and Allergies Vit/Iron Fumarate/FA [ Tablet] 1 tab PO DAILY 05/01/17 [History] Aspirin 81 mg PO DAILY 01/16/18 [History] Omeprazole [PriLOSEC] 20 mg PO DAILY 01/16/18 [History] metFORMIN 1,000 mg PO BID 01/16/18 [History] Allergy/AdvReac Type Severity Reaction Status Date / Time Erythromycin Base AdvReac Rash Verified 05/01/17 07:34 guaifenesin AdvReac Rash Verified 05/01/17 07:34 latex AdvReac See Verified 05/01/17 07:34 Comments moxifloxacin [From Avelox] AdvReac Rash Verified 05/01/17 07:34 Review of System OB All systems PM: reviewed and no additional remarkable complaints except as stated Exam - Constitutional Constitutional: well developed, well nourished, no acute distress - HEENT HEENT: Mucus Membranes Moist - Lungs Respiratory exam: CTAB - Cardiovascular Cardiovascular exam: RRR - Abdomen Abdomen: Present: gravid, non tender - Extremities Extremities exam: normal inspection - Vagina Vagina: Present: normal moisture - Cervix Dilation: 0 (fingertip) Effacement: 80 Station: -2 - Anus/Rectum Anus/Rectum: Present: normal perianal skin Results All other labs normal.
[2018-02-03] MEDS ORDERED: miSOPROStol 25 MCG TABLET VG ONE (21:45)
[2018-02-03 22:19] LABS: Basophils % 0.2 %; Eosinophils # 0.1 K/mcL (0.0-0.6); Eosinophils % 1.5 %; Hematocrit 37.8 % (35.3-44.9); Hemoglobin 12.6 g/dL (11.5-15.4); Immature Granulocytes % 0.2 % (0-4); Lymphocytes # 1.7 K/mcL (0.6-4.6); Lymphocytes % 20.4 %; Mean Corpuscular HGB Conc 33.3 g/dL (31.6-35.5); Mean Corpuscular Hemoglobin 27.5 pg (28.0-33.3); Mean Corpuscular Volume 82.4 fL (83.0-100.0); Mean Platelet Volume 10.2 fL (9.4-12.4); Monocytes # 0.7 K/mcL (0.0-1.3); Monocytes % 8.1 %; Neutrophils # 5.8 K/mcL (1.6-8.9); Platelet Count 274 K/mcL (140-400); Red Blood Count 4.59 M/mcL (3.82-4.97); Red Cell Distribution Width 13.2 % (11.5-14.5); Segmented Neutrophils % 69.6 %
[2018-02-03 22:26] LABS: Amphetamine Screen,Urine Negative ng/mL (Cutoff=1000); Barbiturate Screen,Urine Negative ng/mL (Cutoff=200); Benzodiazepines Screen,Urine Negative ng/mL (Cutoff=200); Cannabinoid Screen,Urine Negative ng/mL (Cutoff = 50); Cocaine Screen,Urine Negative ng/mL (Cutoff= 300); Opiate Screen,Urine Negative ng/mL (Cutoff=300); Phencyclidine Screen,Urine Negative ng/mL (Cutoff=25)
[2018-02-03 22:37] LABS: Alanine Aminotransferase 11 Units/L (7-52); Aspartate Amino Transferase 16 Units/L (13-39); BUN/Creatinine Ratio 19 (6-26); Blood Urea Nitrogen 11 mg/dL (6-20); Lactate Dehydrogenase 144 Units/L (140-271); eGFR For Non-African Americans > 60 (> 60)
[2018-02-04] MEDS ORDERED: miSOPROStol 25 MCG TABLET PO ONE (02:20)
--- NOTE | 2018-02-04 02:46 | Anesthesia Evaluation PreOp ---
Date of Encounter: 02/04/18 Time of Encounter: 23:30 - Past History Planned Operation: ANTON Pulmonary History: Asthma (mild) Other Medical History: GERD, Other (Advanced maternal age, Gestational diabetes treated with metformin, Gallstones found during 3rd trimester of , hx of Invitro fertilization) Anesthesia History: No Prior Anesthetic Complications, Past Anesthesia (Knee surgery x 3, T&A, ORIF right wrist, Hysteroscopy, IVF), Family Deaths (Advanced maternal age, Gestational diabetes treated with metformin, gallston) : Yes Alcohol Use: none Drug use: none Medications and Allergies Vit/Iron Fumarate/FA [ Tablet] 1 tab PO DAILY 05/01/17 [History] Aspirin 81 mg PO DAILY 01/16/18 [History] Omeprazole [PriLOSEC] 20 mg PO DAILY 01/16/18 [History] metFORMIN 1,000 mg PO BID 01/16/18 [History] Allergy/AdvReac Type Severity Reaction Status Date / Time Erythromycin Base AdvReac Rash Verified 05/01/17 07:34 guaifenesin AdvReac Rash Verified 05/01/17 07:34 latex AdvReac See Verified 05/01/17 07:34 Comments moxifloxacin [From Avelox] AdvReac Rash Verified 05/01/17 07:34 - Meds/Allergy Pre-op Review Medications Reviewed: Yes Allergies Reviewed: Yes Beta Blockers on Current Med List: No Anesthesia Results - Labs 02/03/18 21:28 02/03/18 21:28 Anesthesia Exam BP 117/70 P 81 T 97.5 R 16 Height: 5'6" Weight: 90.2kg NPO (# of Hours): 2 Pain Scale: 1 Pain Scale Used: Numeric (1 - 10) - HEENT Pupil (Motor): Pupils equal Mallampati: II Teeth: Normal Oral Opening: Greater than 3 - INSURANCE ACCOUNT REPRESENTATIVE LOC: Oriented INSURANCE ACCOUNT REPRESENTATIVE Motor: Normal RUE, Normal LUE, Normal RLE, Normal LLE, Normal Face INSURANCE ACCOUNT REPRESENTATIVE Sensory: Normal: RUE, LUE, RLE, LLE, Face - Cardiac Rhythm: Regular Murmur: None JVD: No Carotid Bruit: No - Pulmonary Breath Sounds: bilateral Clear Respiratory Effort: Symmetrical Anesthesia Assess/Plan ASA Score: 2 Modified Liberty Scale for Level of Consciousness: Cooperative, oriented, and tra nquil Anesthetic Plan: Regional Autologous Blood: No Monitoring Plan: Standard Monitors Recovery Plan: Other
[2018-02-04] MEDS ORDERED: miSOPROStol 25 MCG TABLET PO SCH (08:00)
--- NOTE | 2018-02-04 10:47 | OB Labor Progress Note ---
Date of Encounter: 02/04/18 Time of Encounter: 08:52 Labor Progress Note - Subjective Subjective: Pt with minimal discomfort this am. - Heart Tones Heart Tones: Category I - [place] Ton[place]: rare UC - Plan Plan: Allow pt to eat breakfast since she is still only 1cm dilated at this time. Plan for repeat cytotec 50mcg PO after breakfast. AROM when able. Epidural when requested. Anticipate . POC per Dr. Costa
[2018-02-04] MEDS ORDERED: Oxytocin 20 units/ LR 1000 mL 20 UNIT/1,000 ML BAG IVC ONE (18:24)
[2018-02-04] MEDS ORDERED: *HR* FentaNYL (PF) 100 MCG/2 ML VIAL ONE (21:52)
[2018-02-04] MEDS ORDERED: Bupivacaine-MPF 0.25% 10 ML VIAL ONE (21:52)
[2018-02-04] MEDS ORDERED: Epidural Premix (fent/bupiv) 110 ML EP ONE (21:54)
[2018-02-04] MEDS ORDERED: *HR* FentaNYL (PF) 100 MCG/2 ML VIAL EP ONE (22:30)
[2018-02-04] MEDS ORDERED: EPHEDrine 50 MG/ML VIAL IVP PRN (22:30)
[2018-02-04] MEDS ORDERED: Bupivacaine-MPF 0.25% 10 ML VIAL EP ONE (22:30)
[2018-02-04] MEDS ORDERED: Epidural Premix (fent/bupiv) 110 ML EP SCH (22:30)
--- NOTE | 2018-02-04 22:35 | Anesthesia Procedures ---
Date of Encounter: 02/04/18 Time of Encounter: 22:05 (procedure finished 2237) Procedures: Anesthesia - Epidural/Spinal Patient ID/Chart reviewed: Yes Patient examined: Yes OB Eval: Gestational age: 37 OB Eval: : 1 OB Eval: Hx Para: 0 OB Eval: Dilated at (cm): 1 OB Eval: Contractions: Non-stressed pattern Consent Obtained: Yes Supplemental Oxygen: None/Room Air Site Prep: Aseptic Technique Patient position: upright Local Anesthetic: Lidocaine 1% Amount of Local Anesthetic used: 3 Touhy Needle Gauge: 18 Touhy Needle Depth (cm): 5 Catheter Depth at Skin (cm): 12 Test Dose (1.5% Lido + Epi): Volume given (mls): 3 Test Dose Result: Negative Loading Dose: 0.25% Marcaine (mls): 5 Loading Dose: Fentanyl (mcg): 100 Loading Dose Administered: Thru Touhy Needle Infusion Med: 0.125% Bupivacaine w/ 2 mcg/ml Fentanyl Infusion Rate (mls/hr): [address]: Tegaderm Interspace Used: L3-L4 Loss of Resistance (LUIS): Yes Blood: No CSF: No Paresthesia: No
[2018-02-05] MEDS ORDERED: *HR* Nalbuphine 10 MG/ML AMPUL IV SCH (02:30)
--- NOTE | 2018-02-05 05:56 | OB Labor Progress Note ---
Date of Encounter: 02/05/18 Time of Encounter: 05:54 Labor Progress Note - Subjective Subjective: Comfortable with epidural - Cervix Cervix: 4/80/-2 - Heart Tones Heart Tones: Baseline 135 Moderate variability Accelerations present 15x15 Some variable and few late decelerations FHR Category II - [place]: Rare and irregular - Interventions Interventions: SVE Page bulb out Position change resolved late decelerations - Plan Plan: Continue active management Consider AROM vs. pitocin Dr. Costa aware and consulted Anticipate
--- NOTE | 2018-02-05 08:43 | OB Labor Progress Note ---
Date of Encounter: 02/05/18 Time of Encounter: 08:41 Labor Progress Note - Subjective Subjective: Pt comfortable with epidural - Cervix Cervix: 5-6/80/-1 - Heart Tones Heart Tones: 2 late decelerations following AROM and likely related to positioning for bed linen change. Dr. Costa aware - Zena Zena: irregular - Interventions Interventions: Inadvertant AROM with SVE. IUPC placed. - Plan Plan: Continue to monitor and titrate pitocin. Frequent repositioning.
[2018-02-05] MEDS ORDERED: 0.9 % Sodium Chloride 1,000 ML ONE (13:04)
--- NOTE | 2018-02-05 19:40 | OB Labor Progress Note ---
Date of Encounter: 02/05/18 Time of Encounter: 17:24 Labor Progress Note - Subjective Subjective: Comfortable - Cervix Cervix: Rim / +1 - Heart Tones Heart Tones: Cat 1 - Interventions Interventions: Restart pitocin - Plan Plan: Anticipate
[2018-02-05] MEDS ORDERED: Bupivacaine-MPF 0.25% 10 ML VIAL ONE (20:36)
[2018-02-05] MEDS ORDERED: CeFAZolin Premix DUPLEX 2,000 MG/50 ML BAG IVPB STA (20:54)
--- NOTE | 2018-02-05 21:19 | OB/GYN Procedure Note ---
Delivery - Delivery Date: 02/05/18 Provider: Wendy Rangel) Intrapartum events: prolonged labor- > = 20hr Delivery induction: villatoro, misoprostol Delivery augmentation: pitocin Delivery monitor: internal FHT, internal uterine Anesthesia: intravenous, epidural Quantitated Blood Loss: 450 - Infant (s) Infant A Delivery Date: 02/05/18 Infant Delivery Time: 20:10 Presentation: vertex Position: MARGARITA Route of delivery: Gender: Female Viability: Viable Pounds: 5 Ounces: 15 Weight Gram: 2.685 kg at 1 minute: 8 at 5 mins: 9 Shoulder Dystocia: not encountered Specimens collected: cord blood Placenta: complete extraction Cord: nuchal cord, 3 umbilical vessels, nuchal reduced (x2) - Repair Episiotomy: none Laceration Description: None - Complications Delivery complications: retained placenta (manual extraction per Dr. Costa) - Disposition Mom disposition: stable in LDR [place] disposition: stable in LDR - Comments Comments: During the third stage, the cord avulsed and patient was given epidural anesthesia. The placenta was manually removed by me without any difficulty. It appeared to be intact. of viable female "Erlinda" weighing 5lbs 15oz with apgars 8 at one minute and 9 at five minutes. A loose nuchal x2 was easily reduced. After pulsations ceased the cord was clamped and cut. A left labial laceration was repaired with 4-0 monocryl. At this time gentle traction was placed on the cord and the pt was directed to bear down. The cord avulsed and Dr. Costa, who was present in the room for the entire procedure, requested an epidural bolus for manual extraction of the placenta. At this time he assumed care of the patient for manual extraction of the placenta. EBL 450ml. Mother and baby stable in kangaroo care following delivery.
--- NOTE | 2018-02-05 21:37 | Anesthesia Progress Note ---
Date of Encounter: 02/05/18 Time of Encounter: 20:45 Anesthesia Note - Note Note: called at 2032 for bolus of epidural catheter for retained placenta removal. arrived to bedside at 2044. bupivicaine 0.25% 8ml via epidural catheter. VSS tolerated with ease 02/05/18 21:35
[2018-02-05] MEDS ORDERED: Benzocaine/Menthol 56 GM AEROSOL SPRAY TP PRN (21:48)
[2018-02-05] MEDS ORDERED: Oxytocin 20 units/ LR 1000 mL 20 UNIT/1,000 ML BAG IVC SCH (21:48)
[2018-02-05] MEDS ORDERED: Lanolin 7 G OINT...G. TP PRN (21:48)
[2018-02-05] MEDS ORDERED: Measles/Mumps/Rubella Vacc 0.5 ML VIAL SQ PRN (21:48)
[2018-02-05] MEDS: Ibuprofen 600 MG TABLET PO PRN (22:37)
[2018-02-06] MEDS: Ibuprofen 600 MG TABLET PO PRN ×3 (05:29→18:34)
[2018-02-06] MEDS: Prenatal Vit/FA 1 EACH TABLET PO SCH (08:47)
[2018-02-06] MEDS: Acetaminophen 325 MG TABLET PO PRN ×2 (08:52→20:35)
--- NOTE | 2018-02-06 08:52 | OB/GYN Progress Note ---
Date of Encounter: 02/06/18 Time of Encounter: 08:50 - Assessment and Plan (1) Vaginal delivery Current Visit: Yes Status: Acute Continue routine care Ice to perineum as needed Dermoplast to perineum as needed Anticipate discharge to home tomorrow (2) Breast feeding status of mother Current Visit: Yes Status: Acute consult Subjective - Subjective Principal diagnosis: s/p Interval history: Feeling well. Out of bed without dizziness. Some perineal discomfort-using ice pack. Cramping minimal, using ibuprofen. Breast-feeding every 2-3 hours. Some nipple soreness. Voiding without difficulty. Passing flatus, no BM yet. Tolerating regular diet. Patient reports: appetite normal, voiding normally, pain well controlled, ambulating normally : doing well, nursing well Objective - Latest Vital Signs Latest vital signs: Vital Signs Temp Pulse Resp BP Pulse Ox 02/06/18 05:48 97.4 F L 89 16 117/73 97 02/06/18 01:45 98.0 F 89 16 105/63 98 02/06/18 00:45 98.0 F 87 16 113/76 98 02/05/18 23:45 98.3 F 93 16 104/71 97 Intake and Output 02/05/18 02/06/18 02/06/18 23:59 07:59 15:59 Output Total 900 / 900 500 / 500 Balance -900 / -900 -500 / -500 Output: Estimated Blood Loss 450 / 450 Catheter 450 / 450 500 / 500 Other: Weight 89.9 kg - Exam Lungs: bilateral: normal Chest: Normal S1, Normal S2 Extremities: Present: normal Abdomen: Present: normal appearance, soft Uterus: Present: normal, firm Uterus Position: 1 Finger Below Umbilicus, Midline
[2018-02-06 20:13] VITALS: BP 101/68
[2018-02-07] MEDS: Ibuprofen 600 MG TABLET PO PRN ×3 (02:33→15:19)
[2018-02-07] MEDS: Prenatal Vit/FA 1 EACH TABLET PO SCH (09:59)
--- NOTE | 2018-02-07 11:45 | Discharge Summary ---
Date of Encounter: 02/07/18 Time of Encounter: 11:43 - Discharge Diagnosis (1) Cholelithiasis affecting in third trimester, antepartum Priority: Secondary Status: Acute Comments: Follow-up scheduled with general surgery in 3 weeks. (2) Gestational diabetes mellitus (GDM) affecting first Priority: Secondary Status: Chronic Comments: Plan for 2 hour GTT in 6 weeks. (3) Breast feeding status of mother Priority: Secondary Status: Acute Comments: Pt has breastpump at home and is well established. (4) Vaginal delivery Priority: Primary Status: Acute Comments: Pt meeting all milestones. Plan for discharge today. - Discharge Medications Prescriptions: Ibuprofen [Motrin] 600 mg PO Q6HR PRN #30 tablet PRN Reason: Cramping Docusate [Colace] 100 mg PO BID #60 capsule Home Medications: Vit/Iron Fumarate/FA [ Tablet] 1 tab PO DAILY 05/01/17 [History] Benzocaine/Menthol Jesse [Dermoplast Jesse] 1 appl TP QID PRN aerosol 02/07/18 [Rx] Docusate [Colace] 100 mg PO BID #60 capsule 02/07/18 [Rx] Ibuprofen [Motrin] 600 mg PO Q6HR PRN #30 tablet 02/07/18 [Rx] Lanolin [Lansinoh] 1 appl TP Q4HR PRN oint...g. 02/07/18 [Rx] Allergies/Adverse Reactions: Allergy/AdvReac Type Severity Reaction Status Date / Time Erythromycin Base AdvReac Rash Verified 05/01/17 07:34 guaifenesin AdvReac Rash Verified 05/01/17 07:34 latex AdvReac See Verified 05/01/17 07:34 Comments moxifloxacin [From Avelox] AdvReac Rash Verified 05/01/17 07:34 Data Procedures and tests throughout hospitalization: Laboratory Tests 02/03/18 02/03/18 02/03/18 21:28 21:28 21:28 WBC 8.4 RBC 4.59 Hgb 12.6 Hct 37.8 MCV 82.4 L MCH 27.5 L MCHC 33.3 RDW 13.2 Plt Count 274 MPV 10.2 Immature Gran % 0.2 Seg Neutrophils % 69.6 Lymphocytes % 20.4 Monocytes % 8.1 Eosinophils % 1.5 Basophils % 0.2 Neutrophils # 5.8 Lymphocytes # 1.7 Monocytes # 0.7 Eosinophils # 0.1 Basophils # 0.0 BUN 11 Creatinine 0.58 L Est GFR ( Amer) > 60 Est GFR (Non-Af Amer) > 60 BUN/Creatinine Ratio 19 POC Glucose Uric Acid 5.0 AST 16 ALT 11 Lactate Dehydrogenase 144 Urine Opiates Screen Negative Ur Barbiturates Screen Negative Ur Phencyclidine Scrn Negative Ur Amphetamines Screen Negative U Benzodiazepines Scrn Negative Urine Cocaine Screen Negative U Marijuana (THC) Screen Negative Ur Drug Screen Interp See Below 02/04/18 07:33 WBC RBC Hgb Hct MCV MCH MCHC RDW Plt Count MPV Immature Gran % Seg Neutrophils % Lymphocytes % Monocytes % Eosinophils % Basophils % Neutrophils # Lymphocytes # Monocytes # Eosinophils # Basophils # BUN Creatinine Est GFR ( Amer) Est GFR (Non-Af Amer) BUN/Creatinine Ratio POC Glucose 104 H Uric Acid AST ALT Lactate Dehydrogenase Urine Opiates Screen Ur Barbiturates Screen Ur Phencyclidine Scrn Ur Amphetamines Screen U Benzodiazepines Scrn Urine Cocaine Screen U Marijuana (THC) Screen Ur Drug Screen Interp Date of admission: 02/03/18 20:24 Primary care physician: PCP NONE Consults: 02/05/18 21:48 Consult to [employer] [CONS] Routine Comment: Vaginal delivery, consult needed Discharging clinician: Wendy Rangel Anticipated date of discharge: 02/07/18 - Patient Status Disposition: Home, Self-Care Condition: Good Functional capacity at discharge: independent ambulation Overall status at discharge: patient is progressing back to baseline - Discharge Instructions Follow Up With: NONE,PCP [Primary Care Provider] - Wendy Rangel CNM [Non-Partnered Physician] - - Diet and Activity Activity: increase activity as tolerated Diet: regular diet Hospital Course Reason for admission: induction of labor Delivery: Episiotomy: none Laceration: 1st degree, other (labial) Other procedures: none complications: none Discharge diagnosis: IUP at term delivered baby: female Hospital course: - Delivery Date: 02/05/18 Provider: Wendy Rangel) Intrapartum events: prolonged labor- > = 20hr Delivery induction: villatoro, misoprostol Delivery augmentation: pitocin Delivery monitor: internal FHT, internal uterine Anesthesia: intravenous, epidural Quantitated Blood Loss: 450 - (s) A Infant Delivery Date: 02/05/18 Delivery Time: 20:10 Presentation: vertex Position: MARGARITA Route of delivery: Gender: Female Viability: Viable Pounds: 5 Ounces: 15 Weight Gram: 2.685 kg at 1 minute: 8 at 5 mins: 9 Shoulder Dystocia: not encountered Specimens collected: cord blood Placenta: complete extraction Cord: nuchal cord, 3 umbilical vessels, nuchal reduced (x2) - Repair Episiotomy: none Laceration Description: None - Complications Delivery complications: retained placenta (manual extraction per Dr. Costa) - Disposition Mom disposition: home PPD#2 [place] disposition: under bililights, breastfed Time Attestation: Total time spent providing and/or coordinating discharge services: Time Spent: Less than 30 minutes Exam - Constitutional Vitals: Temp Pulse Resp BP Pulse Ox 97.9 F 88 16 101/68 97 02/06/18 20:12 02/07/18 08:00 02/07/18 08:00 02/06/18 20:12 02/06/18 20:12 General appearance IM: A&O X 3 - Respiratory Respiratory exam: Present: CTAB - Cardiovascular Cardiovascular exam IM: Present: RRR - GI/Abdominal GI/Abdominal exam IM: soft - External exam: normal external exam Uterine Tone: Firm Uterus Position: At Umbilicus - Extremities Exam Extremities exam IM: Present: normal inspection, pedal edema (mild bilaterally) - Neurological Exam Neurological exam: normal gait, oriented X3 - Psychiatric Additional comments: reports good mood
[2018-02-07] MEDS ORDERED: Methylergonovine 0.2 MG/ML AMPUL IM ONE (15:29)
== END 2018-02-07 15:30 | disposition home or self-care (01) | DRG 806 ==
LOC: 1NENULAB 20:24 → 1NENUOBS 02-06 00:52
PROVIDERS: ADMIT Registered Nurse; ATTEND Registered Nurse